=== PATIENT | male | born 1995 | race Asian ===

== ENCOUNTER 2022-04-16 18:13 | Emergency (ER) | payer OTHER ==
[~2022-04-16] VITALS: Ht 167.6 cm; Wt 86.4 kg
[2022-04-16 21:14] VITALS: BP 138/81
== END 2022-04-16 21:55 | disposition home or self-care (01) ==
LOC: M ED 18:13
DX: S93.402A Sprain of unspecified ligament of left ankle, initial encounter (principal); X50.9XXA Other and unspecified overexertion or strenuous movements or postures, initial encounter; Y92.481 Parking lot as the place of occurrence of the external cause; F17.210 Nicotine dependence, cigarettes, uncomplicated

== ENCOUNTER → 2022-08-14 | Outpatient (CLI) | payer OTHER | LOC: M RAD 16:40 | PROVIDERS: ATTEND Physician Assistant | DX: R51.9 Headache, unspecified (principal) ==

== ENCOUNTER → 2022-08-14 | Outpatient (CLI) | payer OTHER | LOC: M RAD 17:30 | PROVIDERS: ATTEND Physician Assistant | DX: M25.531 Pain in right wrist (principal) ==